=== PATIENT | female | born 1975 | race Caucasian/White ===

== ENCOUNTER 2018-07-24 19:47 | Emergency (ER) | payer BC ==
[2018-07-24] MEDS ORDERED: KETOROLAC 30 MG/ML 1 ML VIAL IVP STA (20:08)
[2018-07-24] MEDS ORDERED: SODIUM CHLORIDE 0.9% 500 ML 500 ML IV STA (20:08)
[2018-07-24] MEDS ORDERED: METOCLOPRAMIDE 5 MG/ML 2 ML VIAL IVP STA (20:08)
--- NOTE | 2018-07-24 20:22 | ED ---
General Adult HPI - General Chief complaint: Headache Stated complaint: CORDOVA Time Seen by Provider: 07/24/18 19:56 Source: patient, RN notes reviewed Mode of arrival: ambulatory Limitations: no limitations - History of Present Illness Initial comments: Chief complaint and history of present illness this is a 42-year-old female complaint of headache for 2 days. 3 days ago the patient had a right breast implant replaced because of rupture of the implant. The implanted been there for over 14 years. Patient denies any significant past history of migraines though when she normally had a headache she can take Excedrin and it goes away. She did not take Excedrin or any medications because of her recent surgery. She did have available Hamilton which did not help per patient. The patient has nausea but no vomiting no fever no meningeal irritation meningismus. No stiff neck. The patient denies any photophobia. No injuries of late. Denies any ALLERGIES. The discomfort starts in the frontal sinus area and because the top of her head. - Related Data Home Medications Medication Instructions Recorded Confirmed Amitriptyline HCl [Elavil] 125 mg PO HS 07/24/18 07/24/18 busPIRone HCL [Buspar] 30 mg PO BID 07/24/18 07/24/18 risperiDONE [RisperDAL] 0.75 mg PO DAILY 07/24/18 07/24/18 Allergies Allergy/AdvReac Type Severity Reaction Status Date / Time No Known Allergies Allergy Verified 07/24/18 19:53 Review of Systems ROS Statement: Those systems with pertinent positive or pertinent negative responses have been documented in the HPI. Review of systems. No photophobia and mild nausea headache frontal area headache going to the top of the head. No meningeal irritation no meningismus. No stiff neck. No sore throat denies nasal congestion. No chest pain shortness of breath no GI/ problems no neuro deficits. All systems were reviewed. Past medical problems significant for breast augmentation 14 years ago and 3 days ago due to a rupture of a breast implant she had it replaced. No problems with the surgery per patient. Patient denies any other medical problems. No other surgeries. Family history grandmother had breast cancer. Patient denies any ALLERGIES she does smoke she was strongly encouraged to stop smoking and advised to Family doctor about ways that he can help her. Denies alcohol use. ROS Other: All systems not noted in ROS Statement are negative. Past Medical History Past Medical History: No Reported History History of Any Multi-Drug Resistant Organisms: None Reported Past Surgical History: Breast Surgery Past Psychological History: PTSD Smoking Status: Never smoker Past Alcohol Use History: None Reported Past Drug Use History: None Reported General Exam - General Exam Comments Initial Comments: General: The patient is awake and alert, P because of headache ongoing for 2 days. The patient was afraid to take any medications which she normally takes for headaches, Excedrin, because of recent surgery. Vital signs temperature 98.3 pulse 112 respiratory rate 20 pulse ox 90% room air blood pressure 124/86. Eye: Pupils are equal, round and reactive to light, extra-ocular movements are intact ; there is normal conjunctiva bilaterally. No signs of icterus. No photophobia. No complaint of any visual acuity changes. No papilledema noted on eye examination. No complaint of any scotoma or visual acuity changes. Visual acuity 2025 both eyes. No complaint of visual scotoma, no evidence of nystagmus. No field of vision loss. Ears, nose, mouth and throat: There are moist mucous membranes and no oral lesions. Dry tongue. Patient reports she's had decreased oral intake. She will be hydrated. Neck: The neck is supple, there is no tenderness, no meningismus. Headache or pressure is not made worse by a Valsalva maneuver. Cardiovascular: Initial heart rate 112. No murmur, rub or gallop is appreciated. Respiratory: Lungs are clear to auscultation, respirations are non-labored, breath sounds are equal. No wheezes, stridor, rales, or rhonchi. Gastrointestinal: Mild nausea no vomiting no significant abdominal pain. Back: No back pain Musculoskeletal: Normal ROM, no tenderness, Neurological: CN II-XII intact, There are no obvious motor or sensory deficits. Coordination appears grossly intact. Speech is normal. No focal or lateralizing findings Skin: Skin is warm and dry and no rashes or lesions are noted. Psychiatric: Cooperative, Limitations: no limitations Course Vital Signs 07/24/18 19:48 Temperature 98.3 F Pulse Rate 112 H Respiratory 20 Rate Blood Pressure 124/86 O2 Sat by Pulse 98 Oximetry Medical Decision Making - Medical Decision Making Medical decision making; this is a 42-year-old female who is coming because of a 2 day headache. The patient reports she normally takes Excedrin but did not take any recently because 3 days ago she had right breast surgery for a ruptured implant. The patient denies any meningeal irritation or stiff neck. Headache starts in the frontal area and goes up to the top of her head. Vital signs are stable, afebrile. Mild nausea but no vomiting. No fever. No ALLERGIES. Examination the patient's neurologically intact no focal or lateralizing findings. Her tongue is dry and she has noted that she's not been drinking much today we discussed dehydration and the patient will be rehydrated. CT of the brain was done and reviewed by radiologist his findings are there is no evidence of acute intracranial hemorrhage, acute ischemic changes, mass, mass effect, or extra-axial fluid collection. There is no effacement of cerebral sulci or basal subarachnoid sisters. There is no hydrocephalus. There is no midline shift. Tillman-white matter distinction is preserved. Empty sella incidentally noted. Orbits and globes appear intact. Paranasal sinuses mastoid air cells are well pneumatized. Impression; 1 empty sella which is generally an incidental finding. 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 #2 no acute intracranial abnormality seen. As read by Dr. Almanzar She was given IV Toradol and Reglan. She states her headache is significantly improved. At no time to the patient had meningeal irritation or stiff neck. The patient thinks the Hamilton she took for her recent breast surgery cause the headache. She normally takes Excedrin for headaches which works well. She was this time advised to continue with her Excedrin. She said that there is no inflammation or swelling or bleeding from the operative site on the right breast. We did discuss the radiologist's findings and the possibility of pseudotumor cerebra. Patient will be given a follow-up recommendation to see a neurologist within the next several days or return emergency room as needed. I discussed the case with on-call neurologist Dr. Swann. Inasmuch as the patient has no visual acuity anomalies or changes. No evidence of any papilledema on examination. The patient will be advised to follow-up with her radiology tech on Thursday or Thursday. And then follow-up with neurology or return emergency room with any changes. The patient is in agreement with this plan. She was advised return emergency room if she develops any changes Disposition Clinical Impression: Headache above the eye region Disposition: HOME SELF-CARE Condition: Fair Instructions: Acute Headache (ED), Tension Headache (ED) Additional Instructions: Return emergency room if you have any changes in near visual acuity. Follow-up with your family doctor. Return to emergency room immediately if he have any change in near vision. Follow-up with your eye doctor for evaluation of the eyes. Follow-up with on-call neurology as directed. Is patient prescribed a controlled substance at d/c from ED?: No Referrals: Amira Blum MD [Primary Care Provider] - 1-2 days Hudson Swann MD [STAFF PHYSICIAN] - 1-2 days Time of Disposition: 22:30
--- NOTE | 2018-07-24 20:38 | CT ---
EXAMINATION TYPE: CT brain wo con DATE OF EXAM: 07/24/2018 COMPARISON: None HISTORY: 42-year-old female with headache x3 days TECHNIQUE: Examination was done in axial plane without intravenous contrast. Coronal and sagittal r econstructions performed. CT DLP: 927.1 mGycm Automated exposure control for dose reduction was used. FINDINGS: There is no evidence of acute intracranial hemorrhage, acute ischemic changes, mass, mass-effect, or extra-axial fluid collection. There is no effacement of cerebral sulci or basal subarachnoid cister ns. There is no hydrocephalus. There is no midline shift. Laboy-white matter distinction is preserv ed. Empty sella incidentally noted. Orbits and globes appear intact. Paranasal sinuses and mastoid air cells are well pneumatized. IMPRESSION: 1. Empty sella which is generally an incidental finding. Clinically correlate given the patient's hea dache and known association of this finding with pseudotumor cerebri. 2. No acute intracranial abnormality seen.
[2018-07-24 22:44] VITALS: BP 122/78; PULSE 100; RESP 16; TEMP 98.4
== END 2018-07-24 22:42 | disposition home or self-care (01) ==
LOC: EC 19:47
DX: R51 Headache (principal); R11.0 Nausea; F43.10 Post-traumatic stress disorder, unspecified; Z79.899 Other long term (current) drug therapy; Z98.890 Other specified postprocedural states
CPT/HCPCS: 70450; 99284; 96374; 96375; 96361; J2765; J1885

== ENCOUNTER → 2019-06-09 | Outpatient (CLI) | payer BC ==
--- NOTE | 2019-06-09 10:15 | US ---
EXAMINATION TYPE: US pelvic complete DATE OF EXAM: 06/09/2019 COMPARISON: NONE CLINICAL HISTORY: N92.1 Excessive and frequent menstruation with irr. Irregular periods. No pain. TECHNIQUE: Transabdominal (TA). Transabdominal sonographic images of the pelvis were acquired. Date of LMP: 05/24/2019, EXAM MEASUREMENTS: Uterus: 7.7 x 4.1 x 4.0 cm Endometrial Stripe: 0.8 cm Right Ovary: 2.3 x 1.4 x 1.4 cm Left Ovary: 3.6 x 2.5 x 2.8 cm 1. Uterus: Anteverted wnl 2. Endometrium: wnl 3. Right Ovary: wnl 4. Left Ovary: Cystic appearing lesion with internal echoes= 2.1 x 2.2 x 2.4 cm. This has the appear ance of a hemorrhagic follicle/involuting cyst. 5. Bilateral Adnexa: wnl 6. Posterior cul-de-sac: no free fluid Cervix- wnl IMPRESSION: No endometrial thickening in this patient with irregular menses. Probable hemorrhagic ova chelsie follicle/involuting hemorrhagic cyst on the left.
== END ==
LOC: RADUSWWP 08:49
PROVIDERS: ATTEND Internal Medicine
DX: N92.1 Excessive and frequent menstruation with irregular cycle (principal)
CPT/HCPCS: 76856

== ENCOUNTER 2021-05-28 17:40 | Inpatient (IN) | payer BC ==
--- NOTE | 2021-05-28 20:15 | ED ---
General Adult HPI - General Chief complaint: Psychiatric Symptoms Stated complaint: mental health Time Seen by Provider: 05/28/21 19:26 Source: patient, RN notes reviewed Mode of arrival: ambulatory Limitations: no limitations - History of Present Illness Initial comments: 45-year-old female presents to the emergency room for suicidal thoughts. Patient states she has had suicidal thoughts on and off throughout her life. However the past year or so these have worsened. She feels that her ex- boyfriend and her daughter want her to kill herself. Patient states that she also thinks they are able to see her thoughts without her seeing them out loud which has been scaring her. Patient states Thursday she got in the car in the garage and wanted to kill herself by turning it on however stopped herself. She states that her daughter's birthday was yesterday and that she really she needed to get evaluated and sought help.Patient has no other complaints at this time including shortness of breath, chest pain, abdominal pain, nausea or vomiting, headache, or visual changes. - Related Data Home Medications Medication Instructions Recorded Confirmed No Known Home Medications 05/28/21 05/29/21 Allergies Allergy/AdvReac Type Severity Reaction Status Date / Time No Known Allergies Allergy Verified 05/29/21 01:22 Review of Systems ROS Statement: Those systems with pertinent positive or pertinent negative responses have been documented in the HPI. ROS Other: All systems not noted in ROS Statement are negative. Past Medical History Past Medical History: No Reported History History of Any Multi-Drug Resistant Organisms: None Reported Past Surgical History: Breast Surgery Past Psychological History: PTSD Smoking Status: Current every day smoker Past Alcohol Use History: None Reported Past Drug Use History: None Reported General Exam Limitations: no limitations General appearance: alert Head exam: Present: atraumatic Eye exam: Present: normal appearance, PERRL, EOMI ENT exam: Present: normal exam, mucous membranes moist Neck exam: Present: normal inspection, full ROM. Absent: tenderness Respiratory exam: Present: normal lung sounds bilaterally. Absent: respiratory distress, wheezes Cardiovascular Exam: Present: regular rate, normal rhythm, normal heart sounds Neurological exam: Present: alert, oriented X3 Psychiatric exam: Present: suicidal ideation. Absent: homicidal ideation Course Vital Signs 05/28/21 05/28/21 18:52 23:23 Temperature 98.6 F Pulse Rate 92 Respiratory 18 18 Rate Blood Pressure 126/86 O2 Sat by Pulse 99 Oximetry Medical Decision Making - Medical Decision Making pt admitted for inpatient psychiatric treatment. - Lab Data Lab Results 05/28/21 05/28/21 05/28/21 Range/Units 22:06 22:06 22:06 Urine Color Yellow Urine Appearance Cloudy H (Clear) Urine pH 5.5 (5.0-8.0) Ur Specific [place] 1.019 (1.001-1.035) Urine Protein Negative (Negative) Urine Glucose (UA) Negative (Negative) Urine Ketones Negative (Negative) Urine Blood Small H (Negative) Urine Nitrite Negative (Negative) Urine Bilirubin Negative (Negative) Urine Urobilinogen <2.0 (<2.0) mg/dL Ur Leukocyte Esterase Negative (Negative) Urine RBC 3 (0-5) /hpf Urine WBC 4 (0-5) /hpf Ur Squamous Epith Cells 6 H (0-4) /hpf Calcium Oxalate Crystal Occasional H (None) /hpf Urine Bacteria Occasional H (None) /hpf Urine Mucus Few H (None) /hpf Urine HCG, Qual Not Detected (Not Detectd) Urine Opiates Screen Not Detected (NotDetected) Ur Oxycodone Screen Not Detected (NotDetected) Urine Methadone Screen Not Detected (NotDetected) Ur Propoxyphene Screen Not Detected (NotDetected) Ur Barbiturates Screen Not Detected (NotDetected) U Tricyclic Antidepress Not Detected (NotDetected) Ur Phencyclidine Scrn Not Detected (NotDetected) Ur Amphetamines Screen Not Detected (NotDetected) U Methamphetamines Scrn Not Detected (NotDetected) U Benzodiazepines Scrn Not Detected (NotDetected) Urine Cocaine Screen Not Detected (NotDetected) U Marijuana (THC) Screen Not Detected (NotDetected) Coronavirus (PCR) (Not Detectd) 05/28/21 Range/Units 22:10 Urine Color Urine Appearance (Clear) Urine pH (5.0-8.0) Ur Specific [place] (1.001-1.035) Urine Protein (Negative) Urine Glucose (UA) (Negative) Urine Ketones (Negative) Urine Blood (Negative) Urine Nitrite (Negative) Urine Bilirubin (Negative) Urine Urobilinogen (<2.0) mg/dL Ur Leukocyte Esterase (Negative) Urine RBC (0-5) /hpf Urine WBC (0-5) /hpf Ur Squamous Epith Cells (0-4) /hpf Calcium Oxalate Crystal (None) /hpf Urine Bacteria (None) /hpf Urine Mucus (None) /hpf Urine HCG, Qual (Not Detectd) Urine Opiates Screen (NotDetected) Ur Oxycodone Screen (NotDetected) Urine Methadone Screen (NotDetected) Ur Propoxyphene Screen (NotDetected) Ur Barbiturates Screen (NotDetected) U Tricyclic Antidepress (NotDetected) Ur Phencyclidine Scrn (NotDetected) Ur Amphetamines Screen (NotDetected) U Methamphetamines Scrn (NotDetected) U Benzodiazepines Scrn (NotDetected) Urine Cocaine Screen (NotDetected) U Marijuana (THC) Screen (NotDetected) Coronavirus (PCR) Not Detected (Not Detectd) Disposition Clinical Impression: Suicidal ideations Disposition: TRANSFER TO PSYCH HOSP/UNIT Is patient prescribed a controlled substance at d/c from ED?: No Time of Disposition: 02:39
[2021-05-28 22:43] LABS: Amphetamine Screen,Urine Not Detected (NotDetected); Barbiturate Screen,Urine Not Detected (NotDetected); Benzodiazepines Screen,Urine Not Detected (NotDetected); Cocaine Screen,Urine Not Detected (NotDetected); Methadone Screen, Urine Not Detected (NotDetected); Opiate Screen,Urine Not Detected (NotDetected); Oxycodone Screen, Urine Not Detected (NotDetected); Phencyclidine Screen,Urine Not Detected (NotDetected); Tricyclic Antidepressant,Urine Not Detected (NotDetected); Urn Cannabinoid Scrn Not Detected (NotDetected)
[2021-05-29] MEDS ORDERED: MAG HYDROX/AL HYDROX/SIMETH 30 ML CUP PO PRN (00:51)
[2021-05-29] MEDS ORDERED: MAGNESIUM HYDROXIDE 2,400 MG/10 ML CUP PO PRN (00:51)
[2021-05-29] MEDS ORDERED: LORazepam 1 MG TAB PO PRN (00:51)
[2021-05-29] MEDS ORDERED: ACETAMINOPHEN TAB 325 MG TAB PO PRN (00:51)
[2021-05-29] MEDS ORDERED: LORazepam 2 MG/ML INJ IM PRN (00:52)
[2021-05-29] MEDS ORDERED: HALOPERIDOL LACTATE 5 MG/ML 1 ML VIAL IM PRN (00:52)
[2021-05-29 01:52] LABS: Appearance,Urine Cloudy (Clear); Bacteria,Urine Occasional /hpf; Bilirubin,Urine Negative (Negative); Blood,Urine Small (Negative); Calcium Oxalate Crystals,Urine Occasional /hpf; Color,Urine Yellow; Glucose,Urine (UA) Negative (Negative); Ketones,Urine Negative (Negative); Leukocyte Esterase,Urine Negative (Negative); Mucus,Urine Few /hpf; Nitrite,Urine Negative (Negative); PH, Urine 5.5 (5.0-8.0); Protein,Urine Negative (Negative); RBC,Urine 3 /hpf (0-5); Specific Gravity,Urine 1.019 (1.001-1.035); Squamous Epithelial Cell,Urine 6 /hpf (0-4); Urobilinogen,Urine <2.0 mg/dL (<2.0); WBC,Urine 4 /hpf (0-5)
--- NOTE | 2021-05-29 02:24 | P.PN ---
Progress Note - Text Progress Note Date: 05/29/21 new consultion request, patient is currently sleeping
[2021-05-29] MEDS ORDERED: FLUoxetine HCL 10 MG CAP PO STA (11:06)
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
[2021-05-29 13:23] VITALS: BMI 18.4
--- NOTE | 2021-05-29 17:48 | P.CONS ---
History of Present Illness - Reason for Consult Consult date: 05/29/21 Medical management - Chief Complaint Depression - History of Present Illness This is a 45-year-old female currently admitted to the psych unit for depression and suicidal thoughts. Patient was brought in by her daughter. Patient was seen by me today. She denies any medical problems. She does not take any prescription medicine at home. She told me that she is more depressed now being in this unit. She is looking forward to be discharged home. Review of Systems Review of system: 14 points review of systems were obtained and were negative except to what were mentioned in the HPI. Past Medical History Past Medical History: No Reported History History of Any Multi-Drug Resistant Organisms: None Reported Past Surgical History: Breast Surgery Past Psychological History: PTSD Smoking Status: Current every day smoker Past Alcohol Use History: None Reported Past Drug Use History: None Reported Medications and Allergies Home Medications Medication Instructions Recorded Confirmed Type No Known Home Medications 05/28/21 05/29/21 History Allergies Allergy/AdvReac Type Severity Reaction Status Date / Time No Known Allergies Allergy Verified 05/29/21 01:22 Physical Exam Vitals: Vital Signs Temp Pulse Pulse Resp BP BP Pulse Ox 05/29/21 01:32 98.2 F 67 15 106/70 99 05/28/21 23:23 18 05/28/21 18:52 98.6 F 92 18 126/86 99 Intake and Output 05/29/21 05/29/21 05/29/21 06:59 14:59 22:59 Other: Weight 45.813 kg 45.813 kg General: The patient is awake and alert, in no distress Eye: there is normal conjunctiva bilaterally. Neck: The neck is supple, there is no JVD. Cardiovascular: Normal S1-S2, no S3-S4, no murmurs. Respiratory: Lungs clear to auscultation bilaterally Gastrointestinal: Abdomen is soft, nontender Musculoskeletal: There is no pedal edema. Neurological:. Speech is normal. Skin: Skin is warm and dry Results Labs: Abnormal Lab Results - Last 24 Hours (Table) 05/28/21 Range/Units 22:06 Urine Appearance Cloudy H (Clear) Urine Blood Small H (Negative) Ur Squamous Epith Cells 6 H (0-4) /hpf Calcium Oxalate Crystal Occasional H (None) /hpf Urine Bacteria Occasional H (None) /hpf Urine Mucus Few H (None) /hpf Assessment and Plan Assessment: This is a 45-year-old female who presented to the hospital with worsening depression and some suicidal thoughts. She is currently being managed by psychiatry. She does not have any medical problems and does not take any pres cription medicine at home. I will follow-up on her on as-needed basis.
[2021-05-30 06:16] VITALS: RESP 14
[2021-05-30] MEDS: FLUoxetine HCL 10 MG CAP PO SCH (08:58)
[2021-05-30 09:33] LABS: Basophils % (A) 1 %; Eosinophils # (A) 0.2 k/uL (0-0.7); Eosinophils % (A) 3 %; HCT 46.1 % (34.0-46.0); HGB 16.2 gm/dL (11.4-16.0); Lymphocytes % (A) 34 %; MCH 33.3 pg (25.0-35.0); MCHC 35.1 g/dL (31.0-37.0); MCV 94.8 fL (80.0-100.0); Mean Platelet Volume 7.9; Monocytes # (A) 0.4 k/uL (0-1.0); Monocytes % (A) 6 %; Neutrophils # (A) 3.2 k/uL (1.3-7.7); Neutrophils % (A) 55 %; Platelet Count 241 k/uL (150-450); RBC 4.86 m/uL (3.80-5.40); RDW 13.2 % (11.5-15.5); WBC 5.9 k/uL (3.8-10.6)
[2021-05-30 09:52] LABS: ALT 8 U/L (4-34); AST 16 U/L (14-36); African American GFR (CKD) >90 (>60 ml/min/1.73 sqM); Albumin 4.3 g/dL (3.5-5.0); Alkaline Phosphatase 70 U/L (38-126); Anion Gap 7 mmol/L; Blood Urea Nitrogen 9 mg/dL (7-17); Calcium 10.1 mg/dL (8.4-10.2); Carbon Dioxide 28 mmol/L (22-30); Chloride 103 mmol/L (98-107); Glucose 102 mg/dL (74-99); Non-African American GFR(CKD) >90 (>60 ml/min/1.73 sqM); Potassium 4.5 mmol/L (3.5-5.1); Sodium 138 mmol/L (137-145); Total Bilirubin 0.5 mg/dL (0.2-1.3); Total Protein 6.8 g/dL (6.3-8.2)
--- NOTE | 2021-05-30 11:03 | P.PN ---
Progress Note - Text Progress Note Date: 05/30/21 Interval History: Patient was seen wandering the hallways and was directable and agreeable to speak with com writer in the office. The patient reports that she feels miserable on the psychiatric unit. She attributes this to the construction and form of the milieu. She is otherwise not reporting any suicidal or homicidal ideation, intention, and/or plan. The patient has been participating in individual and milieu therapies with hypertensive patient. She is not reporting any significant issues regarding her sleep or her appetite. The patient expresses strong desire for discharge as she would like to see her dogs again, clean her home, and continue her psychiatric treatment in the outpatient setting. The patient is not reporting any auditory or visual hallucinations. She denies any paranoia or delusions. The patient has been taking the medications and is not endorsing any significant side effects aside from mild "head tightness." Mental Status Exam: General Appearance: Patient appears to be stated age is alert, directable, and cooperative. Behavior: Patient is calmly seated without any agitated behavior. Appropriately tearful at times. Speech: Patient's speech is fluent and nonpressured. Mood/Affect: Mood is anxious, affect is congruent and tearful. Suicidality/Homicidality: Patient denies having any suicidal or homicidal ideation intent or plan. Perceptions: Patient denies any visual hallucinations and denies any auditory hallucinations Though content/process: There is no evidence of any delusional thought content and thought process is linear and goal-directed. Memory and concentration: AOX3, grossly intact for the purposes of this session Judgment and insight: Improving mildly Vital Signs Temp 97.6 F 05/30/21 06:16 Pulse 65 05/30/21 06:16 Resp 14 05/30/21 06:16 BP 99/58 05/30/21 06:16 Pulse Ox 99 05/29/21 01:32 Intake & Output 05/29/21 05/30/21 05/30/21 18:59 06:59 18:59 Weight 45.813 kg Laboratory Results - Last 24 Hours 05/30/21 05/30/21 08:53 08:53 WBC 5.9 RBC 4.86 Hgb 16.2 H Hct 46.1 H MCV 94.8 MCH 33.3 MCHC 35.1 RDW 13.2 Plt Count 241 MPV 7.9 Neutrophils % 55 Lymphocytes % 34 Monocytes % 6 Eosinophils % 3 Basophils % 1 Neutrophils # 3.2 Lymphocytes # 2.0 Monocytes # 0.4 Eosinophils # 0.2 Basophils # 0.0 Sodium 138 Potassium 4.5 Chloride 103 Carbon Dioxide 28 Anion Gap 7 BUN 9 Creatinine 0.61 Est GFR (CKD-EPI)AfAm >90 Est GFR (CKD-EPI)NonAf >90 Glucose 102 H Calcium 10.1 Total Bilirubin 0.5 AST 16 ALT 8 Alkaline Phosphatase 70 Total Protein 6.8 Albumin 4.3 TSH 1.010 Assessment Major depressive disorder, recurrent, severe Rule out posttraumatic stress disorder Rule out personality disorder Plan: -Patient continues to meet criteria for inpatient psychiatric admission for symptom stabilization and safety. Patient has signed adult voluntary form and medication consent and was placed in patient's chart. -Medications: Continue Prozac 30 mg by mouth daily for depression/anxiety/PTSD -When necessary Ativan and Haldolfor agitation/aggression. -NRT - nicotine patch -SW on board for discharge planning. Encouraged the patient to participate in milieu.
[2021-05-30 17:26] LABS: Chol/HDL Ratio 3.67; Cholesterol 176 mg/dL (0-200)
[2021-05-30 18:03] LABS: Hemoglobin A1C 5.7 % (4.0-6.0)
[2021-05-31 06:27] VITALS: BP 100/55; PULSE 69; TEMP 98.5
[2021-05-31] MEDS: FLUoxetine HCL 10 MG CAP PO SCH (08:59)
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
== END 2021-05-31 10:30 | disposition home or self-care (01) | DRG 885 ==
LOC: EC 17:40 → 3MHU 05-29 00:47
PROVIDERS: ADMIT Psychiatry & Neurology Psychiatry; ATTEND Psychiatry & Neurology Psychiatry
DX: F33.2 Major depressive disorder, recurrent severe without psychotic features (principal); R45.851 Suicidal ideations; Z20.822 Contact with and (suspected) exposure to COVID-19; F43.10 Post-traumatic stress disorder, unspecified; F17.210 Nicotine dependence, cigarettes, uncomplicated; Z71.6 Tobacco abuse counseling; Z81.1 Family history of alcohol abuse and dependence; Z81.8 Family history of other mental and behavioral disorders
CPT/HCPCS: 80053; 80061; 80306; 81001; 81025; 82075; 83036; 84443; 85025; 87635; 99285